=== PATIENT | female | born 1995 | race Two or more races ===

== ENCOUNTER 2021-01-31 09:40 | Emergency (ER) | payer OTHER ==
[~2021-01-31] VITALS: Ht 154.9 cm; Wt 68.0 kg
[2021-01-31 12:38] VITALS: BP 133/90
== END 2021-01-31 12:55 | disposition home or self-care (01) ==
LOC: ER 09:40
DX: J06.9 Acute upper respiratory infection, unspecified (principal); Z20.822 Contact with and (suspected) exposure to COVID-19
CPT/HCPCS: 36415; 71046; 87426

== ENCOUNTER 2021-04-20 09:00 | Emergency (ER) | payer MEDICAID ==
[~2021-04-20] VITALS: Ht 154.9 cm; Wt 68.0 kg
[2021-04-20 09:35] LABS: Urine Bacteria NONE SEEN /hpf (None Seen); Urine Blood TRACE /uL (Negative); Urine Mucus FEW (None Seen); Urine Specific Gravity 1.022 (1.001-1.035); Urine WBC 1 /hpf (0 - 5)
[2021-04-20 10:24] LABS: Basophils # (auto) 0 10 ^3/uL (0-0.2); Basophils % (auto) 0.5 % (0.0-2.0); Eosinophils # (auto) 0.1 10 ^3/uL (0-0.8); Eosinophils % (auto) 0.6 % (0.0-7.0); Hematocrit 38.5 % (36.0-46.0); Lymphocytes # (auto) 1.5 10 ^3/uL (0.4-5.4); Lymphocytes % (auto) 17.2 % (10.0-50.0); Mean Corpuscular Hemoglobin 29.5 pg (28.0-32.0); Mean Corpuscular Hgb Conc. 33.8 g/dL (32.0-36.0); Mean Corpuscular Volume 87.4 fL (80.0-100.0); Monocytes # (auto) 0.6 10 ^3/uL (0-1.3); Monocytes % (auto) 7.4 % (0.0-12.0); Neutrophils # (auto) 6.3 10 ^3/uL (1.6-8.6); Neutrophils % (auto) 74.3 % (37.0-80.0); Nucleated Red Blood Cells % 0.1 %; Red Blood Cells 4.41 10^6/uL (4.0-5.20); White Blood Cell 8.5 10^3/uL (4.4-10.8)
[2021-04-20 15:30] VITALS: BP 115/74
== END 2021-04-20 16:45 | disposition home or self-care (01) ==
LOC: ER 09:00
DX: O20.8 Other hemorrhage in early pregnancy (principal); Z3A.11 11 weeks gestation of pregnancy
CPT/HCPCS: 36415; 81001; 84702; 85025

== ENCOUNTER 2021-12-04 08:53 | Emergency (ER) | payer MEDICAID ==
[~2021-12-04] VITALS: Ht 154.9 cm; Wt 66.4 kg
[2021-12-04 09:46] LABS: Basophils # (auto) 0 10 ^3/uL (0-0.2); Basophils % (auto) 0.7 % (0.0-2.0); Eosinophils # (auto) 0.1 10 ^3/uL (0-0.8); Eosinophils % (auto) 0.9 % (0.0-7.0); Hematocrit 40.7 % (36.0-46.0); Hemoglobin 13.8 g/dL (12.2-16.2); Lymphocytes # (auto) 1.8 10 ^3/uL (0.4-5.4); Lymphocytes % (auto) 25.2 % (10.0-50.0); Mean Corpuscular Hemoglobin 29.6 pg (28.0-32.0); Mean Corpuscular Hgb Conc. 33.8 g/dL (32.0-36.0); Mean Corpuscular Volume 87.7 fL (80.0-100.0); Monocytes # (auto) 0.6 10 ^3/uL (0-1.3); Monocytes % (auto) 8.8 % (0.0-12.0); Neutrophils # (auto) 4.7 10 ^3/uL (1.6-8.6); Neutrophils % (auto) 64.4 % (37.0-80.0); Red Blood Cells 4.64 10^6/uL (4.0-5.20); White Blood Cell 7.3 10^3/uL (4.4-10.8)
[2021-12-04 10:00] LABS: Urine Bacteria NONE SEEN /hpf (None Seen); Urine Blood Negative /uL (Negative); Urine Mucus FEW (None Seen); Urine Specific Gravity 1.034 (1.001-1.035); Urine WBC 10 /hpf (0 - 5)
[2021-12-04] MEDS ORDERED: IBU600T PO (10:17)
[2021-12-04] MEDS ORDERED: KETOROLAC TROMETH 60MG/2ML VIAL IM ONE (10:30)
[2021-12-04 10:44] VITALS: BP 142/94
== END 2021-12-04 10:16 | disposition home or self-care (01) ==
LOC: ER 08:53
DX: R10.33 Periumbilical pain (principal); R11.2 Nausea with vomiting, unspecified; Z79.1 Long term (current) use of non-steroidal anti-inflammatories (NSAID)
CPT/HCPCS: 36415; 74176; 81001; 85025; 96372; 99284; J1885

== ENCOUNTER 2022-12-26 10:55 | Emergency (ER) | payer MEDICAID ==
[~2022-12-26] VITALS: Ht 154.9 cm; Wt 61.0 kg
[~2022-12-26 10:55] MED LIST: IBU600T PO
[2022-12-26 13:08] VITALS: BP 131/90; PULSE 74; RESP 18; TEMP 98.3; O2SAT 96
[2022-12-26 13:21] LABS: Urine Bacteria NONE SEEN /hpf (None Seen); Urine Blood Negative /uL (Negative); Urine Clarity HAZY (Clear); Urine Color Yellow (Yellow); Urine Mucus FEW (None Seen); Urine Protein, UAD 1+ (Negative); Urine Specific Gravity 1.032 (1.001-1.035); Urine Urobilinogen Normal (Negative); Urine WBC 7 /hpf (0 - 5); Urine pH 5.5 (5.0-8.0)
[2022-12-26 14:03] LABS: Basophils # (auto) 0 10 ^3/uL (0-0.2); Basophils % (auto) 0.4 % (0.0-2.0); Eosinophils # (auto) 0 10 ^3/uL (0-0.8); Eosinophils % (auto) 0.3 % (0.0-7.0); Hemoglobin 13.6 g/dL (12.2-16.2); Lymphocytes # (auto) 1.8 10 ^3/uL (0.4-5.4); Lymphocytes % (auto) 18.2 % (10.0-50.0); Mean Corpuscular Hemoglobin 29.8 pg (28.0-32.0); Mean Corpuscular Hgb Conc. 33.9 g/dL (32.0-36.0); Mean Corpuscular Volume 87.9 fL (80.0-100.0); Monocytes # (auto) 0.8 10 ^3/uL (0-1.3); Monocytes % (auto) 7.9 % (0.0-12.0); Neutrophils # (auto) 7.3 10 ^3/uL (1.6-8.6); Neutrophils % (auto) 73.2 % (37.0-80.0); Nucleated Red Blood Cells % 0.1 %; Red Blood Cells 4.55 10^6/uL (4.0-5.20)
[2022-12-26 14:18] LABS: Alanine Aminotransferase 31 U/L (7-40); Alkaline Phosphatase 64 U/L (46-116); Anion Gap 8 (5-15); Aspartate Aminotransferase 15 U/L (13-40); BUN/Creatinine Ratio 11.3 (10.0-20.0); Bilirubin, Total 0.9 mg/dL (0.2-1.0); Blood Urea Nitrogen 8 mg/dL (9-23); Calcium 9.7 mg/dL (8.7-10.4); Carbon Dioxide 24 mmol/L (20-30); Chloride 107 mmol/L (98-107); Glucose 81 mg/dL (74-106); Potassium 3.5 mmol/L (3.5-5.1); Sodium 139 mmol/L (136-145); Total Protein 7.9 g/dL (5.7-8.2)
[2022-12-26] MEDS ORDERED: NAPR-746 PO (14:27)
== END 2022-12-26 14:35 | disposition home or self-care (01) ==
LOC: ER 10:55
DX: M79.642 Pain in left hand (principal); M79.641 Pain in right hand; F15.90 Other stimulant use, unspecified, uncomplicated; Z98.890 Other specified postprocedural states; Z79.1 Long term (current) use of non-steroidal anti-inflammatories (NSAID)
CPT/HCPCS: 36415; 80053; 81001; 81025; 85025

== ENCOUNTER 2023-08-06 11:42 | Emergency (ER) | payer MEDICAID ==
[~2023-08-06 11:42] MED LIST changes: +NAPR-746 PO
== END 2023-08-06 12:12 | disposition left against medical advice (07) ==
LOC: ER 11:42
DX: T14.8XXA Other injury of unspecified body region, initial encounter (principal); Z53.21 Procedure and treatment not carried out due to patient leaving prior to being seen by health care provider; W54.0XXA Bitten by dog, initial encounter; Y93.9 Activity, unspecified; Y92.9 Unspecified place or not applicable; Y99.9 Unspecified external cause status

== ENCOUNTER 2024-02-12 11:02 | Inpatient (IN) | payer MEDICAID ==
[~2024-02-12] VITALS: Ht 154.9 cm; Wt 69.0 kg
[2024-02-12 12:15] LABS: Basophils # (auto) 0.1 10 ^3/uL (0-0.2); Basophils % (auto) 0.5 % (0.0-2.0); Eosinophils # (auto) 0 10 ^3/uL (0-0.8); Eosinophils % (auto) 0.3 % (0.0-7.0); Hematocrit 40.2 % (36.0-46.0); Hemoglobin 13.5 g/dL (12.2-16.2); Lymphocytes % (auto) 18.5 % (10.0-50.0); Mean Corpuscular Hemoglobin 29.7 pg (28.0-32.0); Mean Corpuscular Hgb Conc. 33.5 g/dL (32.0-36.0); Mean Corpuscular Volume 88.6 fL (80.0-100.0); Monocytes # (auto) 0.6 10 ^3/uL (0-1.3); Monocytes % (auto) 5.6 % (0.0-12.0); Neutrophils % (auto) 75.1 % (37.0-80.0); Platelet Count (auto) 281 10^3/uL (140-450); Red Blood Cells 4.54 10^6/uL (4.0-5.20); Red Cell Distribution Width 13.4 % (11.8-14.3); White Blood Cell 10.7 10^3/uL (4.4-10.8)
[2024-02-12 12:53] LABS: Urine Bacteria FEW /hpf (None Seen); Urine Blood Negative /uL (Negative); Urine Budding Yeast OCCASIONAL /hpf (None Seen); Urine Clarity Turbid (Clear); Urine Color Light-Yellow (Yellow); Urine Mucus FEW (None Seen); Urine Protein, UAD TRACE (Negative); Urine Specific Gravity 1.024 (1.001-1.035); Urine Urobilinogen Normal (Negative); Urine WBC 1 /hpf (0 - 5)
[2024-02-12 13:01] LABS: Alanine Aminotransferase 25 U/L (7-40); Albumin 4.8 g/dL (3.2-4.8); Alkaline Phosphatase 64 U/L (46-116); Anion Gap 4 (5-15); Aspartate Aminotransferase 16 U/L (13-40); BUN/Creatinine Ratio 9.4 (10.0-20.0); Bilirubin, Total 0.5 mg/dL (0.2-1.0); Blood Urea Nitrogen 6 mg/dL (9-23); Calcium 9.6 mg/dL (8.7-10.4); Carbon Dioxide 26 mmol/L (20-31); Chloride 110 mmol/L (98-107); Glucose 81 mg/dL (74-106); Lipase 30 U/L (12-53); Potassium 3.9 mmol/L (3.5-5.1); Sodium 140 mmol/L (136-145)
[2024-02-12 13:02] LABS: Total Protein 7.3 g/dL (5.7-8.2)
[2024-02-12] MEDS: IOHEXOL 300 MG/ML 100ML BOTTLE IJ ONE (14:07)
[2024-02-12] MEDS: ONDANSETRON HCL 4 MG/2 ML VIAL IV ONE (16:34)
[2024-02-12] MEDS: MORPHINE SULFATE 4 MG/ML SYR/VIAL IV ONE (16:35)
[2024-02-12 18:18] VITALS: O2SAT 99
[2024-02-12] MEDS ORDERED: ONDANSETRON HCL 4 MG/2 ML VIAL IV PRN (21:45)
[2024-02-12] MEDS ORDERED: DOCUSATE SOD 100 MG CAP PO PRN (21:45)
[2024-02-12] MEDS ORDERED: NITROGLYCERIN 0.4 MG SL TAB SL PRN (21:45)
[2024-02-12] MEDS ORDERED: ACETAMINOPHEN 325 MG TAB PO PRN (21:45)
[2024-02-12] MEDS ORDERED: MORPHINE SULFATE INJ 2 MG/ml SYRG IV PRN ×2 (21:45)
[2024-02-12] MEDS: SODIUM CHLOR 0.9% PF (SALINE LOCK) 10ML VIAL/SYR IV SCH (22:08)
[2024-02-12] MEDS: MORPHINE SULFATE INJ 2 MG/ml SYRG IV PRN (23:04)
[2024-02-12] MEDS: PANTOPRAZOLE 40 MG/10 ML VIAL INJ IV SCH (23:10)
[2024-02-13] VITALS: BP 86/54; PULSE 70; RESP 18; TEMP 97.7; O2SAT 99
[2024-02-13 05:01] LABS: Basophils # (auto) 0 10 ^3/uL (0-0.2); Basophils % (auto) 0.3 % (0.0-2.0); Eosinophils # (auto) 0.1 10 ^3/uL (0-0.8); Eosinophils % (auto) 1.8 % (0.0-7.0); Hematocrit 37.7 % (36.0-46.0); Hemoglobin 12.5 g/dL (12.2-16.2); Lymphocytes # (auto) 2.8 10 ^3/uL (0.4-5.4); Lymphocytes % (auto) 33.7 % (10.0-50.0); Mean Corpuscular Hemoglobin 29.2 pg (28.0-32.0); Mean Corpuscular Hgb Conc. 33.1 g/dL (32.0-36.0); Mean Corpuscular Volume 88.3 fL (80.0-100.0); Monocytes # (auto) 0.8 10 ^3/uL (0-1.3); Neutrophils # (auto) 4.4 10 ^3/uL (1.6-8.6); Neutrophils % (auto) 54.2 % (37.0-80.0); Nucleated Red Blood Cells % 0.1 %; Platelet Count (auto) 255 10^3/uL (140-450); Red Blood Cells 4.27 10^6/uL (4.0-5.20); Red Cell Distribution Width 13.3 % (11.8-14.3); White Blood Cell 8.2 10^3/uL (4.4-10.8)
[2024-02-13 05:30] LABS: Alanine Aminotransferase 21 U/L (7-40); Alkaline Phosphatase 54 U/L (46-116); Anion Gap 6 (5-15); Aspartate Aminotransferase 13 U/L (13-40); BUN/Creatinine Ratio 10.1 (10.0-20.0); Blood Urea Nitrogen 7 mg/dL (9-23); Calcium 9.4 mg/dL (8.7-10.4); Carbon Dioxide 26 mmol/L (20-31); Chloride 109 mmol/L (98-107); Glucose 92 mg/dL (74-106); Potassium 3.7 mmol/L (3.5-5.1); Sodium 141 mmol/L (136-145)
[2024-02-13 05:31] LABS: Bilirubin, Total 0.5 mg/dL (0.2-1.0); Total Protein 6.4 g/dL (5.7-8.2)
[2024-02-13 06:08] VITALS: BP 110/63; PULSE 60; RESP 17; RESP 18; TEMP 98.4; O2SAT 98
[2024-02-13] MEDS: HYDROcodone-ACET 5/325MG TAB PO PRN (07:03)
[2024-02-13 08:48] VITALS: BP 101/59; PULSE 65; RESP 21; TEMP 98.1; O2SAT 97
[2024-02-13] MEDS: POTASSIUM EFFERVESENT TAB 25 MEQ PO ONE (10:34)
== END 2024-02-13 10:39 | disposition left against medical advice (07) | DRG 254 ==
LOC: ER 11:02 → OVERFLOW 21:34 → WEST WING 21:37 → ER 21:37 → WEST WING 02-13 05:40
PROVIDERS: ATTEND Emergency Medicine
DX: K37 Unspecified appendicitis (principal); E86.0 Dehydration; Z53.29 Procedure and treatment not carried out because of patient's decision for other reasons; K42.9 Umbilical hernia without obstruction or gangrene; F12.10 Cannabis abuse, uncomplicated; Z79.899 Other long term (current) drug therapy
CPT/HCPCS: 36415; 74177; 76700; 80053; 80320; 81001; 82306; 82607; 83690; 83735; 84443; 84702; 85025; 93971; 96374; 96375; G0378; J2405; J2470